=== PATIENT | female | born 1950 | race Caucasian/White ===

== ENCOUNTER → 2016-10-15 | Outpatient (CLI) | payer OTHER ==
[~2016-10-15] MED LIST: ARTHRITIS PO; LEVO25TA5 PO; [UNRECOGNIZED DRUG - OTHER] PO
--- NOTE | 2016-10-15 12:53 | DIAGNOSTIC IMAGING REPORT ---
LEFT TIBIA/FIBULA 2 VIEWS ROUTINE, LEFT ANKLE MIN 3 VIEWS ROUTINE CLINICAL HISTORY: ANKLE JOINT PAIN, LEFT M25.572 COMPARISON STUDY: None. FINDINGS: Soft tissue swelling within the left ankle. Moderate osteoarthritis at the ankle joint. There is also dorsal soft tissue swelling within the mid foot. Plantar and posterior calcaneal spurs. No fracture or dislocation. There is also mild osteoarthritis within the left knee. IMPRESSION: Left ankle soft tissue swelling. No fracture or dislocation within the left tibia, fibula, or left ankle. Electronically signed by: Jose Grady M.D. 10/15/2016 12:52 PM Dictated Date/Time: 10/15/2016 12:49 PM
== END | disposition home or self-care (01) ==
LOC: C.RAD 12:17
PROVIDERS: ATTEND Family Medicine
DX: M25.572 Pain in left ankle and joints of left foot (principal)

== ENCOUNTER 2021-08-05 08:35 | Inpatient (IN) ==
[2021-08-05] MEDS ORDERED: CEFEPIME 2,000 MG/20 ML VIAL IV STA (08:53)
--- NOTE | 2021-08-05 08:59 | Emergency Department Note ---
History of Present Illness General Chief complaint: Illness Time Seen by Provider: 08/05/21 08:45 History of Present Illness Maximum Pain Intensity: 8 70-year-old female presents to the ED with a chief complaint of increased weakness and increased shortness of breath especially with exertion. The patient was seen here yesterday with a complaint of 5 days of a cough, fever and congestion as well as fatigue. She also had a little vomiting and diarrhea. She also had loss of taste and smell. She was diagnosed with a Covid pneumonia. She was given a albuterol MDI as well as some IV fluids and Zofran. She was also given monoclonal antibodies IV. She was discharged with a pulse oximeter. She states that her pulse oximeter was 87% this morning. For this reason she can return to the ED. Home Medications Medication Instructions Recorded Confirmed Type cholecalciferol (vitamin D3) 50 50 mcg PO DAILY 01/18/20 07/30/21 History mcg (2,000 unit) capsule (Vitamin D3) levothyroxine 25 mcg tablet 12.5 mcg PO DAILY #45 tab 08/28/20 08/05/21 Rx loratadine 10 mg tablet (Claritin) 10 mg PO DAILY #90 tab 04/19/21 08/05/21 Rx losartan 50 mg tablet 75 mg PO DAILY #90 tab 06/06/21 08/05/21 Rx ascorbic acid (vitamin C) 1,000 mg 1 g PO DAILY tab 07/30/21 07/30/21 History tablet furosemide 20 mg tablet (Lasix) 20 mg PO DAILY PRN #30 tab 07/30/21 08/05/21 Rx garlic [Garlique] PO DAILY 07/30/21 07/30/21 History zinc 50 mg tablet 50 mg PO DAILY 07/30/21 07/30/21 History albuterol sulfate 90 mcg/actuation 2 inh INHALATION Q6H #18 g 08/04/21 Rx aerosol inhaler benzonatate 100 mg capsule 100 mg PO BID 08/05/21 08/05/21 History ivermectin 3 mg tablet 3 mg PO BID 08/05/21 08/05/21 History Allergies Allergy/AdvReac Type Severity Reaction Status Date / Time No Known Drug Allergies Allergy Verified 08/05/21 09:32 Past Med/Surg History Medical History Depression Eczema Endometriosis Charla's thyroiditis Hematuria Hx of ectopic Hyperlipidemia Hypertension Hypothyroidism Irritable bowel syndrome Neural hearing loss, bilateral Venous insufficiency (chronic) (peripheral) Vitamin D deficiency Surgical History H/O unilateral salpingectomy secondary to ectopic History of cholecystectomy (2012) History of hysterectomy (1992) partial S/P left knee arthroscopy S/P right knee arthroscopy Family History Aunt Breast cancer Mother , Sep 2019 Non-Hodgkin lymphoma Hypertension High cholesterol Congestive heart failure Father High cholesterol Leukemia Grandmother (Maternal) Myocardial infarction, Onset Age: 67 Denies family history of Ovarian cancer Prostate cancer Colorectal cancer Social History Smoking Status: Never smoker Second Hand Exposure: No; Hx Alcohol Use: No Hx Substance Use: No Preferred Language: Pakistani Communication Ability: Effective Visual Impairment: No Limitations Hearing Ability: Hard of Hearing Plan Coordinator Required: No Beliefs That Will Affect Care: None marital status: Current Living Situation: Spouse current occupational status: other current occupation: homemaker Feels Safe at Home: Yes Childhood Exposure to Second-Hand Smoke: No caffeine: Yes (1 cup a day coffee) during the past year weight has: decreased > 10 lbs Dental Care, Regularly: No Physical Activity Frequency: 1-2 Times per Week Seatbelt Use: always Sunscreen Use: No Review of Systems A total of 10 systems reviewed and were otherwise negative Physical Exam Vital Signs Vital Signs - 24 hr 08/05/21 08:40 08/05/21 09:33 08/05/21 09:39 Temperature 38.5 C H Temperature Source Temporal Artery Scan Pulse Rate 96 H Respiratory Rate 20 Respiratory Effort / Characteristics Non-Labored Respiratory Depth Normal Respiratory Pattern Regular Blood Pressure 148/68 H Blood Pressure Mean 94 Blood Pressure Position Sitting Pulse Oximetry 92 94 82 L Oxygen Delivery Method Room Air Nasal Cannula Room Air Oxygen Flow Rate 3 Sepsis Recent Fever Within 48 Hours Yes Sepsis New/Unexplained Change in Mental Status No Sepsis Action Taken by Nursing No Action Required Oxygen Flow Rate - Titration 3 Pulse Oximetry Post Tiitration 95 CONSTITUTIONAL/VITAL SIGNS: Reviewed / noted above. GENERAL: Non-toxic in appearance. INTEGUMENTARY: Warm, dry, and [place]. HEAD: Normocephalic. EYES: without scleral icterus or trauma. ENT/OROPHARYNX: clear and moist. LYMPHADENOPATHY/NECK: Is supple without lymphadenopathy or meningismus. RESPIRATORY: Bilateral rhonchi right greater than left. No wheezes. Mild to moderate increased work of breathing after coming out of the bathroom CARDIOVASCULAR: Regular rate and rhythm. GI/ABDOMEN: Soft and nontender. No organomegaly or pulsatile mass. EXTREMITIES: Warm and well perfused. BACK: No CVA tenderness. NEUROLOGICAL: Intact without focal deficits. PSYCHIATRIC: normal affect. MUSCULOSKELETAL: Normally developed with good muscle tone. TRIAGE NURSING DOCUMENTATION REVIEWED. Course Administered Medications Discontinued Medications Acetaminophen (Acetaminophen 500 Mg Tab) 500 mg PO NOW STA Stop: 08/05/21 09:11 Last Admin: 08/05/21 09:20 Dose: 500 mg Documented by: [id number] Dexamethasone Sodium Phosphate (DexamethasonePf 10 Mg/Ml Vial) 6 mg IV NOW ONE Stop: 08/05/21 09:08 Last Admin: 08/05/21 09:20 Dose: 6 mg Documented by: [id number] Cefepime HCl (Maxipime) 2,000 mg in 20 mls @ 5 mls/min IV NOW STA; Protocol Stop: 08/05/21 08:56 Last Admin: 08/05/21 09:20 Dose: 5 mls/min Documented by: [id number] Medical Decision Making Differential Diagnosis The differential was considered includes acute myocardial infarction, acute cor onary syndrome, myocarditis, pericarditis, pericardial effusions /tamponad, esophageal perforation, pulmonary embolism, pneumonia, pneumothorax, cardiomyopathy, congestive heart, anemia , COPD/asthma exacerbation. Medical Records Attestation: I reviewed the patient's medical records. Home Medications Current Medication List: was personally reviewed by me Laboratory Data Attestation: I reviewed the patient's lab results. Result diagrams: 08/05/21 09:05 08/05/21 09:05 Lab Results 08/05/21 08/05/21 08/05/21 Range/Units 09:05 09:05 09:05 WBC 8.03 (4.8-10.8) K/uL RBC 4.05 L (4.2-5.4) M/uL Hgb 12.7 (12.0-16.0) g/dL Hct 38.6 (37-47) % MCV 95.3 (80-100) fL MCH 31.4 (25-34) pg MCHC 32.9 (32-36) g/dL RDW Std Deviation 50.5 H (36.4-46.3) fL RDW Coeff of Manny 14.4 (11.5-14.5) % Plt Count 134 (130-400) K/uL MPV 10.1 (7.4-10.4) fL Immature Gran % (Auto) 0.5 % Neut % (Auto) 90.0 % Lymph % (Auto) 7.3 % Tompkins % (Auto) 2.1 % Eos % (Auto) 0.0 % Baso % (Auto) 0.1 % Neut # (Auto) 7.22 H (1.4-6.5) K/uL Lymph # (Auto) 0.59 L (1.2-3.4) K/uL Tompkins # (Auto) 0.17 (0.11-0.59) K/uL Eos # (Auto) 0.00 (0-0.5) K/uL Baso # (Auto) 0.01 (0-0.2) K/uL Immature Gran # (Auto) 0.04 H (0.00-0.02) K/uL PT Cancelled INR Cancelled APTT Cancelled PTT Ratio Cancelled Sodium 136 (136-145) mmol/L Potassium 3.4 L (3.5-5.1) mmol/L Chloride 107 (98-107) mmol/L Carbon Dioxide 20 L (21-32) mmol/L Anion Gap 9.0 (3-11) BUN 14 (7-18) mg/dl Creatinine 1.01 (0.6-1.2) mg/dl Est Cr Clr Drug Dosing Not Reportable Est GFR ( Amer) 64.4 ml/min Est GFR (Non-Af Amer) 55.6 ml/min BUN/Creatinine Ratio 13.7 (10-20) Glucose 125 H (70-99) mg/dl Lactate (0.4-2.0) mmol/L Calcium 8.6 (8.5-10.1) mg/dl Magnesium 2.0 (1.8-2.4) mg/dl Total Bilirubin 0.4 (0.2-1) mg/dl AST 109 H (15-37) U/L ALT 131 H (12-78) Alkaline Phosphatase 262 H (45-117) U/L Troponin I 0.031 (0-0.045) ng/ml Total Protein 7.6 (6.4-8.2) gm/dl Albumin 3.1 L (3.4-5.0) gm/dl Globulin 4.5 H (2.5-4.0) gm/dl Albumin/Globulin Ratio 0.7 L (0.9-2) 08/05/21 Range/Units 09:05 WBC (4.8-10.8) K/uL RBC (4.2-5.4) M/uL Hgb (12.0-16.0) g/dL Hct (37-47) % MCV (80-100) fL MCH (25-34) pg MCHC (32-36) g/dL RDW Std Deviation (36.4-46.3) fL RDW Coeff of Manny (11.5-14.5) % Plt Count (130-400) K/uL MPV (7.4-10.4) fL Immature Gran % (Auto) % Neut % (Auto) % Lymph % (Auto) % Tompkins % (Auto) % Eos % (Auto) % Baso % (Auto) % Neut # (Auto) (1.4-6.5) K/uL Lymph # (Auto) (1.2-3.4) K/uL Tompkins # (Auto) (0.11-0.59) K/uL Eos # (Auto) (0-0.5) K/uL Baso # (Auto) (0-0.2) K/uL Immature Gran # (Auto) (0.00-0.02) K/uL PT INR APTT PTT Ratio Sodium (136-145) mmol/L Potassium (3.5-5.1) mmol/L Chloride (98-107) mmol/L Carbon Dioxide (21-32) mmol/L Anion Gap (3-11) BUN (7-18) mg/dl Creatinine (0.6-1.2) mg/dl Est Cr Clr Drug Dosing Est GFR ( Amer) ml/min Est GFR (Non-Af Amer) ml/min BUN/Creatinine Ratio (10-20) Glucose (70-99) mg/dl Lactate 1.4 (0.4-2.0) mmol/L Calcium (8.5-10.1) mg/dl Magnesium (1.8-2.4) mg/dl Total Bilirubin (0.2-1) mg/dl AST (15-37) U/L ALT (12-78) Alkaline Phosphatase (45-117) U/L Troponin I (0-0.045) ng/ml Total Protein (6.4-8.2) gm/dl Albumin (3.4-5.0) gm/dl Globulin (2.5-4.0) gm/dl Albumin/Globulin Ratio (0.9-2) Imaging Data My Impression: Chest x-ray: Per my interpretation there is bilateral infiltrates right greater than left. This appears worse than yesterday's x-ray. No pneumothorax. ECG Data Attestation: I personally reviewed and interpreted this ECG as follows: Additional Comments: Twelve-lead EKG: Per my interpretation shows a normal sinus rhythm at a rate of 94. No ST elevation. No PVCs. Normal QTC MDM Narrative Patient returns to the ED after discharge last night with increased shortness of breath and fatigue and a low pulse oximeter. Her initial pulse ox in triage here was 93% but with after walking out of the bathroom in the ED room, she had saturations of 78% on room air. She does not use home oxygen. She does have some rhonchi right greater than left. She is also febrile with a temperature of 38.5. Chest x-ray shows bilateral infiltrates right greater than left. It appears worse than yesterday's x-ray. Her CBC and chemistry panel was unremarkable other than some transaminitis which was present yesterday as well. Troponin was negative. The patient was given IV Decadron. She was also given empiric cefepime and p.o. Tylenol. She will be seen by the hospitalist for further inpatient evaluation and care. Impression & Plan Pneumonia due to COVID-19 virus, Hypoxia Discharge Plan Visit Data Chief Complaint: Illness ED Provider: Jeffry Mora Discharge Problem: Pneumonia due to COVID-19 virus, Hypoxia Patient Disposition: Admitted As Inpatient Forms Stand Alone Forms: My [facility] [place] Prescriptions Prescriptions: No Action levothyroxine 25 mcg tablet 12.5 mcg PO DAILY Qty: 45 RF: 1 Hold Instructions: hair loss loratadine [Claritin] 10 mg tablet 10 mg PO DAILY Qty: 90 RF: 1 losartan 50 mg tablet 75 mg PO DAILY Qty: 90 RF: 1 ascorbic acid (vitamin C) 1,000 mg tablet 1 g PO DAILY RF: 0 garlic [Garlique] PO DAILY RF: 0 zinc 50 mg tablet 50 mg PO DAILY RF: 0 furosemide [Lasix] 20 mg tablet 20 mg PO DAILY PRN (Reason: edema) Qty: 30 RF: 1 cholecalciferol (vitamin D3) [Vitamin D3] 50 mcg (2,000 unit) Capsule 50 mcg PO DAILY RF: 0 albuterol sulfate 90 mcg/actuation HFA aerosol inhaler 2 inh inhalation Q6H Qty: 18 RF: 2 ivermectin 3 mg tablet 3 mg PO BID RF: 0 benzonatate 100 mg capsule 100 mg PO BID RF: 0 Referrals Referrals: Bell Rosales DO [Primary Care Provider] -
[2021-08-05] MEDS ORDERED: dexAMETHasone**PF** 10 MG/ML VIAL IV ONE (09:07)
[2021-08-05] MEDS ORDERED: ACETAMINOPHEN 500 MG TAB PO STA (09:10)
[2021-08-05] MEDS ORDERED: REMDESIVIR 200 MG in SODIUM CHLORIDE 0.9% 210 ML IV STA (09:23)
[2021-08-05 09:26] LABS: Basophils # (auto) 0.01 K/uL (0-0.2); Basophils % (auto) 0.1 %; Hematocrit (blood only) 38.6 % (37-47); Hemoglobin 12.7 g/dL (12.0-16.0); Immature Granulocytes # (auto) 0.04 K/uL (0.00-0.02); Immature Granulocytes % (auto) 0.5 %; Lymphocytes # (auto) 0.59 K/uL (1.2-3.4); Lymphocytes % (auto) 7.3 %; Mean Corpuscular Hemoglobin 31.4 pg (25-34); Mean Corpuscular Hgb Conc 32.9 g/dL (32-36); Mean Corpuscular Volume 95.3 fL (80-100); Mean Platelet Volume 10.1 fL (7.4-10.4); Monocytes # (auto) 0.17 K/uL (0.11-0.59); Monocytes % (auto) 2.1 %; Neutrophils # (auto) 7.22 K/uL (1.4-6.5); Platelet Count 134 K/uL (130-400); RDW Coefficient of Variation 14.4 % (11.5-14.5); RDW Standard Deviation 50.5 fL (36.4-46.3); Red Blood Count 4.05 M/uL (4.2-5.4); White Blood Count 8.03 K/uL (4.8-10.8)
[2021-08-05 09:49] LABS: Alanine Aminotransferase 131 (12-78); Albumin Level 3.1 gm/dl (3.4-5.0); Aspartate Aminotransferase 109 U/L (15-37); BUN Creatinine Ratio 13.7 (10-20); Blood Urea Nitrogen 14 mg/dl (7-18); Calcium 8.6 mg/dl (8.5-10.1); Carbon Dioxide 20 mmol/L (21-32); Chloride 107 mmol/L (98-107); Est GFR (African American) 64.4 ml/min; Est GFR (Non-African American) 55.6 ml/min; Glucose 125 mg/dl (70-99); Potassium 3.4 mmol/L (3.5-5.1); Sodium 136 mmol/L (136-145)
[2021-08-05 09:54] LABS: Albumin Globulin Ratio 0.7 (0.9-2); Alkaline Phosphatase 262 U/L (45-117); Bilirubin,Total 0.4 mg/dl (0.2-1); Globulin 4.5 gm/dl (2.5-4.0); Total Protein 7.6 gm/dl (6.4-8.2); Troponin I 0.031 ng/ml (0-0.045)
--- NOTE | 2021-08-05 10:01 | XRay Report ---
XR chest 1V portable HISTORY: 70 years-old Female SEPSIS acute sepsis COMPARISON: Chest radiograph August 04, 2021 TECHNIQUE: Portable AP view of the chest FINDINGS: Cardiac silhouette is enlarged. Mild left hemidiaphragmatic elevation. No pneumothorax or large pleur al effusion. Interstitial coarsening with patchy bilateral airspace opacities, mildly progressed from prior. Pulmonary vascular congestion. Degenerative changes of the shoulders and spine. IMPRESSION: Cardiomegaly with probable pulmonary edema and progressively worsened airspace opacities suggestive of superimposed pneumonia. ACT 112: Negative or not required by law. The above report was generated using voice recognition software. It may contain grammatical, syntax o r spelling errors. Electronically signed by: Audie Gauthier M.D. 08/05/2021 10:00 AM
[2021-08-05] MEDS: FUROSEMIDE 20 MG TAB PO SCH (10:02)
[2021-08-05] MEDS: LOSARTAN POTASSIUM 50 MG TAB PO SCH (10:02)
--- NOTE | 2021-08-05 10:47 | History & Physical Report ---
Date of Service August 05, 2021 Assessment & Plan (1) Pneumonia due to COVID-19 virus: Plan: Patient acute hypoxic respiratory failure secondary to Covid 19 infection with pneumonia First symptoms: ~07/30/2021 First tested: in our system 08/04/2021 Vaccinated: No Admission date: 08/05/2021 Admission O2 requirement: 3 L Admission CRP: Pending Dexamethasone course started: 08/05/2020 Remdesivir started: 08/05/2020 Tocilizumab given/baricitinib being considered Antibiotics: Azithromycin, was given cefepime in the ER did a pro-Adan of 1.16 on admission (2) Hypertension: Plan: Continue losartan will be on daily furosemide in addition (3) Hypothyroidism: Plan: History of Charla's thyroiditis continues on levothyroxine very low-dose History of Present Illness Primary Care Provider: Bell Rosales DO 70-year-old female who received monoclonal antibodies on 08/04/2021. Patient presents after going home and coming back with hypoxemia. Patient has a 5-day prehospital history of fever congestion fatigue and diarrhea. Patient has Covid positive testing. Patient became profoundly hypoxic when ambulating in the ER. Patient is extremely hard of hearing but recommended for admission. She denies any other medical problems with exception of a prolapsed uterus and difficulty with urinary incontinence but no complaints of dysuria or cloudy urine. Patient remains intermittently febrile and hypoxemic patient is unvaccinated. Patient was taking ivermectin that she got off the Internet from [place] Allergies Allergy/AdvReac Type Severity Reaction Status Date / Time No Known Drug Allergies Allergy Verified 08/05/21 09:32 Home Medications Medication Instructions Recorded Confirmed Type cholecalciferol (vitamin D3) 50 50 mcg PO DAILY 01/18/20 07/30/21 History mcg (2,000 unit) capsule (Vitamin D3) levothyroxine 25 mcg tablet 12.5 mcg PO DAILY #45 tab 08/28/20 08/05/21 Rx loratadine 10 mg tablet (Claritin) 10 mg PO DAILY #90 tab 04/19/21 08/05/21 Rx losartan 50 mg tablet 75 mg PO DAILY #90 tab 06/06/21 08/05/21 Rx ascorbic acid (vitamin C) 1,000 mg 1 g PO DAILY tab 07/30/21 07/30/21 History tablet furosemide 20 mg tablet (Lasix) 20 mg PO DAILY PRN #30 tab 07/30/21 08/05/21 Rx garlic [Garlique] PO DAILY 07/30/21 07/30/21 History zinc 50 mg tablet 50 mg PO DAILY 07/30/21 07/30/21 History albuterol sulfate 90 mcg/actuation 2 inh INHALATION Q6H #18 g 08/04/21 Rx aerosol inhaler benzonatate 100 mg capsule 100 mg PO BID 08/05/21 08/05/21 History ivermectin 3 mg tablet 3 mg PO BID 08/05/21 08/05/21 History Past Med/Surg History Medical History Depression Eczema Endometriosis Charla's thyroiditis Hematuria Hx of ectopic Hyperlipidemia Hypertension Hypothyroidism Irritable bowel syndrome Neural hearing loss, bilateral Venous insufficiency (chronic) (peripheral) Vitamin D deficiency Surgical History H/O unilateral salpingectomy secondary to ectopic History of cholecystectomy (2012) History of hysterectomy (1992) partial S/P left knee arthroscopy S/P right knee arthroscopy Family History Aunt Breast cancer Mother , Sep 2019 Non-Hodgkin lymphoma Hypertension High cholesterol Congestive heart failure Father High cholesterol Leukemia Grandmother (Maternal) Myocardial infarction, Onset Age: 67 Denies family history of Ovarian cancer Prostate cancer Colorectal cancer Social History Smoking Status: Never smoker Second Hand Exposure: No; Hx Alcohol Use: No Hx Substance Use: No Preferred Language: Japanese Communication Ability: Effective Visual Impairment: No Limitations Hearing Ability: Hard of Hearing 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 Beliefs That Will Affect Care: None marital status: Current Living Situation: Spouse current occupational status: other current occupation: homemaker Feels Safe at Home: Yes Safety Concerns: Feels Safe At This Time Childhood Exposure to Second-Hand Smoke: No caffeine: Yes (1 cup a day coffee) during the past year weight has: decreased > 10 lbs Dental Care, Regularly: No Physical Activity Frequency: 1-2 Times per Week Seatbelt Use: always Sunscreen Use: No Assistive Devices: Glasses and Hearing Aid - Bilateral Review of Systems Review of Systems: Moderate distress and fatigue no headache, no visual changes no speech or swallowing issues no chest pain, pressure or palpitations shortness of breath, nonproductive cough or wheezes some chest wall muscle strain from coughing no abdominal pain, nausea or vomiting, no diarrhea No dysuria but she does have incontinence no focal joint pain or swelling no back pain, CVA tenderness or radicular pain no bruising, bleeding or rashes no focal signs of weakness or numbness or altered sensation no complaints of anxiety or depression.. Physical Exam Physical Exam: The patient appeared mild to moderate respiratory distress Vital signs as documented. Head exam is normocephalic atraumatic Neck is without JVD, thyromegaly, or carotid bruits. Lungs are coarse bilaterally in all lung anthony tachypnea Cardiac exam, Rhythm is regular.. No murmurs, rubs or gallops. Abdominal exam reveals normal bowel sounds, soft non tender, no masses Extremities are nonedematous and both pedal pulses are present Neurologic exam is alert and oriented, no focal loss of strength or sensation Skin is without bruises or rashes Psychologically is without concerns for anxiety or depression.. Results & Data Results & Data ([facility]) Vital Signs (Past 12 Hours) Vital Signs Temp Pulse Resp BP Pulse Ox 08/05/21 09:39 82 L 08/05/21 09:33 94 08/05/21 08:40 101.3 F H 96 H 20 148/68 H 92 Code Status & VTE Plan VTE Prophylaxis Plan VTE Prophylaxis will be ordered: Yes PG Care Time/CCT Total # of Minutes Spent Total Time Spent with Patient: Total time spent is greater than 50% in coordination of care (as documented) at patient's floor/unit and/or counseling patient: Coding Level of Care Code 84207 Initial Inpt Care Lvl 3 Diagnoses Pneumonia due to COVID-19 virus U07.1; J12.82 Hypertension I10 Hypothyroidism E03.9
[2021-08-05] MEDS ORDERED: ALUMINUM/MAGNESIUM SUSP 30 ML UDC PO PRN (11:18)
[2021-08-05] MEDS ORDERED: PATIENT'S HEIGHT AND/OR WEIGHT NEEDED SCH (11:30)
[2021-08-05] MEDS: AZITHROMYCIN 500 MG in DEXTROSE 5% 250 ML IV SCH (12:21)
[2021-08-05] MEDS: FAMOTIDINE 20 MG TAB PO SCH ×2 (12:57→20:48)
[2021-08-05] MEDS: ZINC SULFATE 220 MG CAPSULE PO SCH (13:34)
--- NOTE | 2021-08-05 14:14 | Electrocardiogram Report ---
Test Reason : Blood Pressure : / mmHG Vent. Rate : 094 BPM Atrial Rate : 094 BPM P-R Int : 140 ms QRS Dur : 076 ms QT Int : 336 ms P-R-T Axes : 045 041 048 degrees QTc Int : 420 ms Normal sinus rhythm Normal ECG When compared with ECG of 04-AUG-2021 16:52, (unconfirmed) No significant change was found Confirmed by Kanu Mayorga ([id number]) on 08/05/2021 2:14:08 PM Referred By: ED Confirmed By:Kanu Mayorga
[2021-08-05] MEDS ORDERED: COUGH DROP (SUGAR FREE) LOZ 24 LOZ/1 BOX BUCCAL STA (16:36)
[2021-08-05] MEDS: ONDANSETRON INJ 2 MG/ML 2 ML VIAL IV PRN (20:48)
[2021-08-05] MEDS: guaiFENesin/CODEINE 100MG/10MG 5ML UDC PO PRN (21:50)
[2021-08-05] MEDS: MELATONIN 3 MG TAB PO PRN (22:47)
[2021-08-06] MEDS: LEVOTHYROXINE SODIUM 25 MCG TABLET PO SCH ×2 (04:33→04:36)
[2021-08-06] MEDS: guaiFENesin/CODEINE 100MG/10MG 5ML UDC PO PRN (04:34)
[2021-08-06] MEDS ORDERED: MICONAZOLE NITRATE POWDER 43 GM EXT PRN (05:07)
[2021-08-06] MEDS: ONDANSETRON INJ 2 MG/ML 2 ML VIAL IV PRN (05:33)
[2021-08-06] MEDS ORDERED: POTASSIUM CHLORIDE CRTAB 20 MEQ TABCR PO STA (08:18)
[2021-08-06] MEDS: LOSARTAN POTASSIUM 50 MG TAB PO SCH (09:00)
[2021-08-06] MEDS: FAMOTIDINE 20 MG TAB PO SCH ×2 (09:00→20:57)
[2021-08-06] MEDS: ZINC SULFATE 220 MG CAPSULE PO SCH (09:00)
[2021-08-06] MEDS: dexAMETHasone 6 MG in SYRINGE 0 ML IV SCH (09:01)
[2021-08-06] MEDS: CHOLECALCIFEROL 1,000 UNITS 25 MCG TAB PO SCH (09:01)
[2021-08-06] MEDS: FUROSEMIDE 20 MG TAB PO SCH (09:01)
[2021-08-06] MEDS: LORATADINE 10 MG TAB PO SCH (09:01)
[2021-08-06] MEDS: ASCORBIC ACID 500 MG TAB PO SCH (09:01)
[2021-08-06] MEDS: REMDESIVIR 100 MG in SODIUM CHLORIDE 0.9% 230 ML IV SCH (10:45)
[2021-08-06] MEDS: AZITHROMYCIN 500 MG in DEXTROSE 5% 250 ML IV SCH (12:34)
[2021-08-06] MEDS: SODIUM CHLORIDE 0.9% 10ML FLUSH IV SCH (12:35)
--- NOTE | 2021-08-06 18:39 | Hospitalist Progress Note ---
Date of Service August 06, 2021 Assessment & Plan (1) Pneumonia due to COVID-19 virus: Plan: Patient acute hypoxic respiratory failure secondary to Covid 19 infection with pneumonia First symptoms: ~07/30/2021 First tested: in our system 08/04/2021 Vaccinated: No Admission date: 08/05/2021 Admission O2 requirement: 2 L Admission CRP: 12 on 08/05/21 Dexamethasone course started: 08/05/2020 Remdesivir started: 08/05/2020 Tocilizumab given/baricitinib being considered Antibiotics: Azithromycin, was given cefepime in the ER did a pro-Adan of 1.16 on admission did spend 25 minutes at the bedside discussing the vaccine etc (2) Hypertension: Plan: Continue losartan will be on daily furosemide in addition (3) Hypothyroidism: Plan: History of Charla's thyroiditis continues on levothyroxine very low-dose Admission and Anticipated Discharge Date Admission Date: August 05, 2021 Subjective Patient is in good spirits today. She requires very little oxygen at this time doing well has many questions about the vaccine etc. Review of Systems Review of Systems: Moderate distress and fatigue no headache, no visual changes no speech or swallowing issues no chest pain, pressure or palpitations shortness of breath, nonproductive cough or wheezes some chest wall muscle strain from coughing no abdominal pain, nausea or vomiting, no diarrhea No dysuria but she does have incontinence no focal joint pain or swelling no back pain, CVA tenderness or radicular pain no bruising, bleeding or rashes no focal signs of weakness or numbness or altered sensation no complaints of anxiety or depression.. Physical Exam Physical Exam: The patient appeared mild to moderate respiratory distress Vital signs as documented. Head exam is normocephalic atraumatic Neck is without JVD, thyromegaly, or carotid bruits. Lungs are coarse bilaterally in all lung anthony tachypnea Cardiac exam, Rhythm is regular.. No murmurs, rubs or gallops. Abdominal exam reveals normal bowel sounds, soft non tender, no masses Extremities are nonedematous and both pedal pulses are present Neurologic exam is alert and oriented, no focal loss of strength or sensation Skin is without bruises or rashes Psychologically is without concerns for anxiety or depression.. Results & Data Results & Data ([facility]) Vital Signs (Past 12 Hours) Vital Signs Temp Pulse Resp BP Pulse Ox Pulse Ox 08/06/21 14:40 98.1 F 20 153/76 H 96 08/06/21 09:12 93 08/06/21 08:26 98.6 F 81 19 149/77 H 91 PG Care Time/CCT Total # of Minutes Spent Total Time Spent with Patient: Total time spent is greater than 50% in coordination of care (as documented) at patient's floor/unit and/or counseling patient: Coding Level of Care Code 23706 Subseq Hosp Care Lvl 2 Diagnoses Pneumonia due to COVID-19 virus U07.1; J12.82 Hypertension I10 Hypothyroidism E03.9
[2021-08-06] MEDS: MELATONIN 3 MG TAB PO PRN (22:47)
[2021-08-07] MEDS ORDERED: ALBUTEROL HFA 8 GM INHALER INH ONE (03:06)
[2021-08-07] MEDS: guaiFENesin/CODEINE 100MG/10MG 5ML UDC PO PRN ×2 (03:19→22:22)
[2021-08-07] MEDS: LEVOTHYROXINE SODIUM 25 MCG TABLET PO SCH (04:45)
--- NOTE | 2021-08-07 08:54 | Hospitalist Progress Note ---
Date of Service August 07, 2021 Assessment & Plan (1) Pneumonia due to COVID-19 virus: Plan: Patient acute hypoxic respiratory failure secondary to Covid 19 infection with pneumonia First symptoms: ~07/30/2021 First tested: in our system 08/04/2021 Vaccinated: No Admission date: 08/05/2021 Admission O2 requirement: 2 L Admission CRP: 12 on 08/05/21 Dexamethasone course started: 08/05/2020 Remdesivir started: 08/05/2020 Tocilizumab given/baricitinib being considered Antibiotics: Azithromycin, was given cefepime in the ER did a pro-Adan of 1.16 on admission gave reassurance at the bedside with supportive encouragement (2) Hypertension: Plan: Continue losartan will be on daily furosemide in addition (3) Hypothyroidism: Plan: 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 She requires variable oxygen at this time up to 6 L and now back to 4 liters Review of Systems Review of Systems: Moderate distress and fatigue no headache, no visual changes no speech or swallowing issues no chest pain, pressure or palpitations shortness of breath, nonproductive cough or wheezes chest is less no abdominal pain, nausea or vomiting, no diarrhea No dysuria but she does have incontinence no focal joint pain or swelling no back pain, CVA tenderness or radicular pain no bruising, bleeding or rashes no focal signs of weakness or numbness or altered sensation no complaints of anxiety or depression.. Physical Exam Physical Exam: The patient appeared mild to moderate respiratory distress Vital signs as documented. Head exam is normocephalic atraumatic Neck is without JVD, thyromegaly, or carotid bruits. Lungs are coarse bilaterally in all lung anthony tachypnea Cardiac exam, Rhythm is regular.. No murmurs, rubs or gallops. Abdominal exam reveals normal bowel sounds, soft non tender, no masses Extremities are nonedematous and both pedal pulses are present Neurologic exam is alert and oriented, no focal loss of strength or sensation Skin is without bruises or rashes Psychologically is without concerns for anxiety or depression.. Results & Data Results & Data ([facility]) Vital Signs (Past 12 Hours) Vital Signs Temp Pulse Resp BP Pulse Ox 08/07/21 07:56 97.5 F L 90 22 172/87 H 95 08/07/21 03:48 77 24 93 08/07/21 03:33 91 08/07/21 02:25 87 L 08/06/21 22:47 97.9 F 71 16 142/83 H 94 PG Care Time/CCT Total # of Minutes Spent Total Time Spent with Patient: Total time spent is greater than 50% in coordination of care (as documented) at patient's floor/unit and/or counseling patient: Coding Level of Care Code 21584 Subseq Hosp Care Lvl 2 Diagnoses Pneumonia due to COVID-19 virus U07.1; J12.82 Hypertension I10 Hypothyroidism E03.9
[2021-08-07] MEDS: dexAMETHasone 6 MG in SYRINGE 0 ML IV SCH (10:03)
[2021-08-07] MEDS: FAMOTIDINE 20 MG TAB PO SCH ×2 (10:03→22:21)
[2021-08-07] MEDS: ZINC SULFATE 220 MG CAPSULE PO SCH (10:04)
[2021-08-07] MEDS: ASCORBIC ACID 500 MG TAB PO SCH (10:04)
[2021-08-07] MEDS: LORATADINE 10 MG TAB PO SCH (10:05)
[2021-08-07] MEDS: CHOLECALCIFEROL 1,000 UNITS 25 MCG TAB PO SCH (10:05)
[2021-08-07] MEDS: FLUTICASONE PROPIONATE NA SPR 16 GM BTL SCH ×2 (10:06→21:16)
[2021-08-07] MEDS: LOSARTAN POTASSIUM 50 MG TAB PO SCH (10:10)
[2021-08-07] MEDS: FUROSEMIDE 20 MG TAB PO SCH (10:10)
[2021-08-07] MEDS: REMDESIVIR 100 MG in SODIUM CHLORIDE 0.9% 230 ML IV SCH (11:45)
[2021-08-07] MEDS: SODIUM CHLORIDE 0.9% 10ML FLUSH IV SCH (12:52)
[2021-08-07] MEDS: AZITHROMYCIN 500 MG in DEXTROSE 5% 250 ML IV SCH (12:56)
[2021-08-07] MEDS: MELATONIN 3 MG TAB PO PRN (22:21)
[2021-08-07] MEDS: ONDANSETRON INJ 2 MG/ML 2 ML VIAL IV PRN (22:22)
[2021-08-07] MEDS: ACETAMINOPHEN 325 MG TAB PO PRN (22:32)
[2021-08-08] MEDS: LEVOTHYROXINE SODIUM 25 MCG TABLET PO SCH (05:46)
[2021-08-08] MEDS: LORATADINE 10 MG TAB PO SCH (08:30)
[2021-08-08] MEDS: ASCORBIC ACID 500 MG TAB PO SCH (08:30)
[2021-08-08] MEDS: ZINC SULFATE 220 MG CAPSULE PO SCH (08:30)
[2021-08-08] MEDS: FUROSEMIDE 20 MG TAB PO SCH (08:31)
[2021-08-08] MEDS: LOSARTAN POTASSIUM 50 MG TAB PO SCH (08:31)
[2021-08-08] MEDS: CHOLECALCIFEROL 1,000 UNITS 25 MCG TAB PO SCH (08:31)
[2021-08-08] MEDS: FLUTICASONE PROPIONATE NA SPR 16 GM BTL SCH (08:32)
[2021-08-08] MEDS: FAMOTIDINE 20 MG TAB PO SCH ×2 (08:40→20:52)
[2021-08-08] MEDS: ONDANSETRON INJ 2 MG/ML 2 ML VIAL IV PRN (08:40)
[2021-08-08] MEDS: ACETAMINOPHEN 325 MG TAB PO PRN ×2 (08:40→20:51)
[2021-08-08 09:52] LABS: Basophils # (auto) 0.01 K/uL (0-0.2); Basophils % (auto) 0.2 %; Hematocrit (blood only) 38.4 % (37-47); Hemoglobin 12.6 g/dL (12.0-16.0); Immature Granulocytes # (auto) 0.01 K/uL (0.00-0.02); Immature Granulocytes % (auto) 0.2 %; Lymphocytes % (auto) 14.6 %; Mean Corpuscular Hgb Conc 32.8 g/dL (32-36); Mean Corpuscular Volume 94.6 fL (80-100); Mean Platelet Volume 10.4 fL (7.4-10.4); Monocytes # (auto) 0.34 K/uL (0.11-0.59); Monocytes % (auto) 5.5 %; Neutrophils # (auto) 4.92 K/uL (1.4-6.5); Neutrophils % (auto) 79.5 %; Platelet Count 207 K/uL (130-400); RDW Coefficient of Variation 14.1 % (11.5-14.5); RDW Standard Deviation 48.8 fL (36.4-46.3); Red Blood Count 4.06 M/uL (4.2-5.4); White Blood Count 6.18 K/uL (4.8-10.8)
[2021-08-08 10:48] LABS: Albumin Level 2.6 gm/dl (3.4-5.0); BUN Creatinine Ratio 32.3 (10-20); Creatinine Clr Calc Pharmacy 76.4 ml/min; Est GFR (African American) 92.3 ml/min; Est GFR (Non-African American) 79.6 ml/min; Potassium 3.8 mmol/L (3.5-5.1)
[2021-08-08 10:59] LABS: Albumin Globulin Ratio 0.6 (0.9-2); Bilirubin,Total 0.5 mg/dl (0.2-1); C Reactive Protein 3.8 mg/dl (0-0.29); Globulin 4.5 gm/dl (2.5-4.0); Total Protein 7.1 gm/dl (6.4-8.2)
--- NOTE | 2021-08-08 11:30 | Hospitalist Progress Note ---
Date of Service August 08, 2021 Assessment & Plan (1) Pneumonia due to COVID-19 virus: Plan: Patient acute hypoxic respiratory failure secondary to Covid 19 infection with pneumonia First symptoms: ~07/30/2021 First tested: in our system 08/04/2021 Vaccinated: No Admission date: 08/05/2021 Admission O2 requirement: 2 L Admission CRP: 12 on 08/05/21 Dexamethasone course started: 08/05/2020 Remdesivir started: 08/05/2020 Tocilizumab given/baricitinib: current CRP 3.8 and oxygen requirement does not qualify Antibiotics: Azithromycin, was given cefepime in the ER did a pro-Adan of 1.16 on admission, procalcitonin now negative, will continue 5 day course azithromycin then stop Prone as able Increase Lasix to 40mg IV daily (2) Acute respiratory failure with hypoxia: Plan: Secondary to COVID Aim O2 sats > 90%. (3) Hypertension: Plan: Continue losartan will be on daily furosemide in addition (4) Hypothyroidism: Plan: Levothyroxine reportedly on hold per PCP therefore will discontinue this Plan: VTE Prophylaxis - Lovenox 40mg SQ daily Diet - regular Disposition - continue on COVID precautions med/surg Admission and Anticipated Discharge Date Admission Date: August 05, 2021 Subjective No significant change in shortness of breath. Significantly short of breath on minimal exertion. No chest pain. She reports longstanding urinary incontinence, ongoing issues with bladder prolapse. Also concerned about burning in her nose. Review of Systems Review of Systems: All systems reviewed & are unremarkable except as noted in HPI & below Physical Exam Constitutional: WD/WN, vitals as above Eyes: + anicteric sclerae; normal pupil size ENMT: external ear and nose normal, oropharynx normal Neck: trachea midline, no thyromegaly Respiratory: normal respiratory effort Auscultation: + crackles (bilaterally) Cardiovascular: RRR, no murmur, no edema Gastrointestinal (Abdomen): normal bowel sounds, soft, nontender, no hepatosplenomegaly Musculoskeletal: no cyanosis or clubbing, extremities motor strength 5/5 Skin: no rashes, warm and dry Neurologic: moves all extremities and awake; not confused Psychiatric: A+Ox3, euthymic affect Results & Data Results & Data ([facility]) Laboratory Results Abnormal lab results 08/08/21 08/08/21 Range/Units 09:27 09:27 RBC 4.06 L (4.2-5.4) M/uL RDW Std Deviation 48.8 H (36.4-46.3) fL Lymph # (Auto) 0.90 L (1.2-3.4) K/uL Chloride 108 H (98-107) mmol/L BUN 24 H (7-18) mg/dl BUN/Creatinine Ratio 32.3 H (10-20) Glucose 134 H (70-99) mg/dl AST 40 H (15-37) U/L Alkaline Phosphatase 177 H D (45-117) U/L C-Reactive Protein 3.80 H (0-0.29) mg/dl Albumin 2.6 L (3.4-5.0) gm/dl Globulin 4.5 H (2.5-4.0) gm/dl Albumin/Globulin Ratio 0.6 L (0.9-2) PG Care Time/CCT Total # of Minutes Spent Total Time Spent with Patient: Total time spent is greater than 50% in coordination of care (as documented) at patient's floor/unit and/or counseling patient: Coding Level of Care Code 36496 Subseq Hosp Care Lvl 2 Diagnoses Pneumonia due to COVID-19 virus U07.1; J12.82 Hypertension I10 Hypothyroidism E03.9 Acute respiratory failure with hypoxia J96.01
[2021-08-08] MEDS: dexAMETHasone 6 MG in SYRINGE 0 ML IV SCH (12:19)
[2021-08-08] MEDS: REMDESIVIR 100 MG in SODIUM CHLORIDE 0.9% 230 ML IV SCH (12:24)
[2021-08-08] MEDS: SODIUM CHLORIDE 0.9% 10ML FLUSH IV SCH (12:25)
[2021-08-08] MEDS: AZITHROMYCIN 250 MG TAB PO SCH (13:46)
[2021-08-08] MEDS: ENOXAPARIN INJ 40 MG/0.4 ML SYR SQ SCH (13:46)
[2021-08-08] MEDS: ADVANCED PROBIOTIC 1250 MG CAPSULE PO SCH (13:46)
[2021-08-08] MEDS: guaiFENesin/CODEINE 100MG/10MG 5ML UDC PO PRN (20:51)
[2021-08-08] MEDS: MELATONIN 3 MG TAB PO PRN (20:51)
[2021-08-08] MEDS: SODIUM CHLORIDE 0.65% NA SOLN 45 ML (OCEAN) SCH (20:52)
[2021-08-09] MEDS: LOSARTAN POTASSIUM 50 MG TAB PO SCH (08:57)
[2021-08-09] MEDS: ZINC SULFATE 220 MG CAPSULE PO SCH (08:58)
[2021-08-09] MEDS: ADVANCED PROBIOTIC 1250 MG CAPSULE PO SCH (08:58)
[2021-08-09] MEDS: LORATADINE 10 MG TAB PO SCH (08:59)
[2021-08-09] MEDS: ASCORBIC ACID 500 MG TAB PO SCH (08:59)
[2021-08-09] MEDS: CHOLECALCIFEROL 1,000 UNITS 25 MCG TAB PO SCH (09:00)
[2021-08-09] MEDS: FUROSEMIDE 40 MG/4 ML VIAL IV SCH (09:01)
[2021-08-09] MEDS: ENOXAPARIN INJ 40 MG/0.4 ML SYR SQ SCH (09:01)
[2021-08-09] MEDS: dexAMETHasone 6 MG in SYRINGE 0 ML IV SCH (09:02)
[2021-08-09] MEDS: FAMOTIDINE 20 MG TAB PO SCH ×2 (09:15→21:20)
[2021-08-09] MEDS: SODIUM CHLORIDE 0.65% NA SOLN 45 ML (OCEAN) SCH ×2 (09:28→21:20)
[2021-08-09] MEDS: guaiFENesin/CODEINE 100MG/10MG 5ML UDC PO PRN (09:34)
--- NOTE | 2021-08-09 10:55 | Hospitalist Progress Note ---
Date of Service August 09, 2021 Assessment & Plan (1) Pneumonia due to COVID-19 virus: Plan: Patient acute hypoxic respiratory failure secondary to Covid 19 infection with pneumonia First symptoms: ~07/30/2021 First tested: in our system 08/04/2021 Vaccinated: No Admission date: 08/05/2021 Admission O2 requirement: 2 L Admission CRP: 12 on 08/05/21 Dexamethasone course started: 08/05/2020 Remdesivir started: 08/05/2020 Tocilizumab given/baricitinib: current CRP 3.8 and oxygen requirement does not qualify Antibiotics: Azithromycin, was given cefepime in the ER did a pro-Adan of 1.16 on admission, procalcitonin now negative, will continue 5 day course azithromycin then stop Prone as able Good urine output with Lasix 20mg PO +20mg IV yesterday - increase daily dose to 40mg IV daily Start MiraLAX 17g BID (2) Acute respiratory failure with hypoxia: Plan: Secondary to COVID Aim O2 sats > 90%. (3) Hypertension: Plan: Continue losartan will be on daily furosemide in addition (4) Hypothyroidism: Plan: Levothyroxine reportedly on hold per PCP therefore will discontinue this Plan: VTE Prophylaxis - Lovenox 40mg SQ daily Diet - regular Disposition - continue on COVID precautions med/surg Admission and Anticipated Discharge Date Admission Date: August 05, 2021 Subjective No acute concerns or questions. Concerned she hasn't moved much in the last three days. No BM yet since admission. Nose burning improved with humidified oxygen. Review of Systems Review of Systems: All systems reviewed & are unremarkable except as noted in HPI & below Physical Exam Constitutional: WD/WN, vitals as above Eyes: + anicteric sclerae; normal pupil size ENMT: external ear and nose normal, oropharynx normal Neck: trachea midline, no thyromegaly Respiratory: normal respiratory effort Auscultation: + crackles (bilaterally) Cardiovascular: RRR, no murmur, no edema Gastrointestinal (Abdomen): normal bowel sounds, soft, nontender, no hepatosplenomegaly Musculoskeletal: no cyanosis or clubbing, extremities motor strength 5/5 Skin: no rashes, warm and dry Neurologic: moves all extremities and awake; not confused Psychiatric: A+Ox3, euthymic affect Results & Data Results & Data ([place]) Vital Signs (Past 12 Hours) Vital Signs Temp Pulse Resp BP Pulse Ox 08/09/21 08:35 36.6 C 84 18 172/80 H 90 08/08/21 23:32 36.8 C 74 20 151/75 H 90 PG Care Time/CCT Total # of Minutes Spent Total Time Spent with Patient: Total time spent is greater than 50% in coordination of care (as documented) at patient's floor/unit and/or counseling patient: Coding Level of Care Code 65001 Subseq Hosp Care Lvl 2 Diagnoses Pneumonia due to COVID-19 virus U07.1; J12.82 Acute respiratory failure with hypoxia J96.01 Hypertension I10 Hypothyroidism E03.9
[2021-08-09] MEDS: REMDESIVIR 100 MG in SODIUM CHLORIDE 0.9% 230 ML IV SCH (13:55)
[2021-08-09] MEDS: AZITHROMYCIN 250 MG TAB PO SCH (15:15)
[2021-08-09] MEDS: POLYETHYLENE (MIRALAX) 17 GM PACK PO SCH (15:15)
[2021-08-09] MEDS: SODIUM CHLORIDE 0.9% 10ML FLUSH IV SCH (15:17)
[2021-08-10] MEDS: MELATONIN 3 MG TAB PO PRN ×2 (00:29→20:04)
--- NOTE | 2021-08-10 07:53 | Hospitalist Progress Note ---
Date of Service August 10, 2021 Assessment & Plan (1) Pneumonia due to COVID-19 virus: Plan: Patient acute hypoxic respiratory failure secondary to Covid 19 infection with pneumonia First symptoms: ~07/30/2021 First tested: in our system 08/04/2021 Vaccinated: No Admission date: 08/05/2021 Admission O2 requirement: 2 L Admission CRP: 12 on 08/05/21 Dexamethasone course started: 08/05/2020 Remdesivir started: 08/05/2020 completed Tocilizumab given/baricitinib: current CRP 3.8 and oxygen requirement does not qualify Antibiotics: Azithromycin, was given cefepime in the ER did a pro-Adan of 1.16 on admission, procalcitonin now negative, will continue 5 day course azithromycin then stop Prone as able Good urine output with Lasix 20mg PO +20mg IV yesterday - increase daily dose to 40mg IV daily Start MiraLAX 17g BID (2) Acute respiratory failure with hypoxia: Plan: Secondary to COVID Aim O2 sats > 90%. (3) Hypertension: Plan: Continue losartan will be on daily furosemide in addition (4) Hypothyroidism: Plan: Levothyroxine reportedly on hold per PCP therefore will discontinue this Plan: VTE Prophylaxis - Lovenox 40mg SQ daily Diet - regular Disposition - continue on COVID precautions med/surg Admission and Anticipated Discharge Date Admission Date: August 05, 2021 Subjective Patient slowly improving still having problems with constipation had a large stool ball that was very tender Review of Systems Review of Systems: Moderate distress and fatigue no headache, no visual changes no speech or swallowing issues no chest pain, pressure or palpitations shortness of breath, nonproductive cough or wheezes chest is less no abdominal pain, nausea or vomiting, no diarrhea No dysuria but she does have incontinence no focal joint pain or swelling no back pain, CVA tenderness or radicular pain no bruising, bleeding or rashes no focal signs of weakness or numbness or altered sensation no complaints of anxiety or depression.. Physical Exam Physical Exam: The patient appeared mild to moderate respiratory distress Vital signs as documented. Head exam is normocephalic atraumatic Neck is without JVD, thyromegaly, or carotid bruits. Lungs are coarse bilaterally in all lung anthony tachypnea Cardiac exam, Rhythm is regular.. No murmurs, rubs or gallops. Abdominal exam reveals normal bowel sounds, soft non tender, no masses Extremities are nonedematous and both pedal pulses are present Neurologic exam is alert and oriented, no focal loss of strength or sensation Skin is without bruises or rashes Psychologically is without concerns for anxiety or depression.. Results & Data Results & Data ([facility]) Vital Signs (Past 12 Hours) Vital Signs Temp Pulse Resp BP Pulse Ox Pulse Ox 08/09/21 23:15 93 08/09/21 21:23 97.7 F 57 L 16 153/84 H 94 PG Care Time/CCT Total # of Minutes Spent Total Time Spent with Patient: Total time spent is greater than 50% in coordination of care (as documented) at patient's floor/unit and/or counseling patient: Coding Level of Care Code 58568 Subseq Hosp Care Lvl 2 Diagnoses Pneumonia due to COVID-19 virus U07.1; J12.82 Acute respiratory failure with hypoxia J96.01 Hypertension I10 Hypothyroidism E03.9
[2021-08-10] MEDS: POLYETHYLENE (MIRALAX) 17 GM PACK PO SCH (08:45)
[2021-08-10] MEDS: ASCORBIC ACID 500 MG TAB PO SCH (08:46)
[2021-08-10] MEDS: CHOLECALCIFEROL 1,000 UNITS 25 MCG TAB PO SCH (08:47)
[2021-08-10] MEDS: LORATADINE 10 MG TAB PO SCH (08:47)
[2021-08-10] MEDS: FAMOTIDINE 20 MG TAB PO SCH ×2 (08:48→20:04)
[2021-08-10] MEDS: ADVANCED PROBIOTIC 1250 MG CAPSULE PO SCH (08:48)
[2021-08-10] MEDS: ZINC SULFATE 220 MG CAPSULE PO SCH (08:48)
[2021-08-10] MEDS: guaiFENesin/CODEINE 100MG/10MG 5ML UDC PO PRN (08:49)
[2021-08-10] MEDS: LOSARTAN POTASSIUM 50 MG TAB PO SCH (08:49)
[2021-08-10] MEDS: ENOXAPARIN INJ 40 MG/0.4 ML SYR SQ SCH (08:54)
[2021-08-10] MEDS: dexAMETHasone 6 MG in SYRINGE 0 ML IV SCH (08:54)
[2021-08-10] MEDS: FUROSEMIDE 40 MG/4 ML VIAL IV SCH (08:54)
[2021-08-10] MEDS: SODIUM CHLORIDE 0.65% NA SOLN 45 ML (OCEAN) SCH ×2 (08:55→20:05)
[2021-08-10 09:11] LABS: Albumin Level 2.8 gm/dl (3.4-5.0); BUN Creatinine Ratio 42.7 (10-20); Calcium 8.8 mg/dl (8.5-10.1); Creatinine Clr Calc Pharmacy 77.1 ml/min; Est GFR (Non-African American) 83.7 ml/min; Potassium 3.7 mmol/L (3.5-5.1)
[2021-08-10 09:14] LABS: Albumin Globulin Ratio 0.7 (0.9-2); Globulin 4.2 gm/dl (2.5-4.0)
[2021-08-10 09:21] LABS: Bilirubin,Total 0.5 mg/dl (0.2-1)
[2021-08-10] MEDS: SUCRALFATE 1 GM TAB PO SCH ×3 (13:11→20:04)
[2021-08-10] MEDS ORDERED: bisacodyL 10 MG SUPP PR STA (18:19)
[2021-08-10] MEDS: ACETAMINOPHEN 325 MG TAB PO PRN (20:05)
--- NOTE | 2021-08-11 07:51 | Hospitalist Progress Note ---
Date of Service August 11, 2021 Assessment & Plan (1) Pneumonia due to COVID-19 virus: Plan: Patient acute hypoxic respiratory failure secondary to Covid 19 infection with pneumonia First symptoms: ~07/30/2021 First tested: in our system 08/04/2021 Vaccinated: No Admission date: 08/05/2021 Admission O2 requirement: 2 L Admission CRP: 12 on 08/05/21 Dexamethasone course started: 08/05/2020 Remdesivir started: 08/05/2020 completed Tocilizumab given/baricitinib: current CRP 3.8 and oxygen requirement does not qualify Antibiotics: Azithromycin, was given cefepime in the ER did a pro-Adan of 1.16 on admission, procalcitonin now negative, will continue 5 day course azithromycin then stop Prone as able Good urine output with Lasix - Start MiraLAX 17g BID (2) Acute respiratory failure with hypoxia: Plan: Secondary to COVID Aim O2 sats > 90%. (3) Hypertension: Plan: Continue losartan will be on daily furosemide in addition (4) Hypothyroidism: Plan: Levothyroxine reportedly on hold per PCP therefore will discontinue this Plan: VTE Prophylaxis - Lovenox 40mg SQ daily Diet - regular constipation resolved Disposition - continue on COVID precautions med/surg Admission and Anticipated Discharge Date Admission Date: August 05, 2021 Subjective Patient slowly improving, resolved constipation Review of Systems Review of Systems: Lessening distress and fatigue no headache, no visual changes no speech or swallowing issues no chest pain, pressure or palpitations shortness of breath, nonproductive cough or wheezes chest is less no abdominal pain, nausea or vomiting, no diarrhea No dysuria but she does have incontinence no focal joint pain or swelling no back pain, CVA tenderness or radicular pain no bruising, bleeding or rashes no focal signs of weakness or numbness or altered sensation no complaints of anxiety or depression.. Physical Exam Physical Exam: The patient appeared mild to moderate respiratory distress Vital signs as documented. Head exam is normocephalic atraumatic Neck is without JVD, thyromegaly, or carotid bruits. Lungs are coarse bilaterally in all lung anthony tachypnea Cardiac exam, Rhythm is regular.. No murmurs, rubs or gallops. Abdominal exam reveals normal bowel sounds, soft non tender, no masses Extremities are nonedematous and both pedal pulses are present Neurologic exam is alert and oriented, no focal loss of strength or sensation Skin is without bruises or rashes Psychologically is without concerns for anxiety or depression.. Results & Data Results & Data ([facility]) Vital Signs (Past 12 Hours) Vital Signs Temp Pulse Resp BP Pulse Ox Pulse Ox 08/10/21 23:00 92 08/10/21 22:19 98.4 F 63 18 156/78 H 92 PG Care Time/CCT Total # of Minutes Spent Total Time Spent with Patient: Total time spent is greater than 50% in coordination of care (as documented) at patient's floor/unit and/or counseling patient: Coding Level of Care Code 89666 Subseq Hosp Care Lvl 2 Diagnoses Pneumonia due to COVID-19 virus U07.1; J12.82 Acute respiratory failure with hypoxia J96.01 Hypertension I10 Hypothyroidism E03.9
[2021-08-11 07:53] LABS: Creatinine Clr Calc Pharmacy 79.5 ml/min; Est GFR (African American) 100.3 ml/min; Est GFR (Non-African American) 86.6 ml/min
[2021-08-11] MEDS: dexAMETHasone 6 MG in SYRINGE 0 ML IV SCH (09:15)
[2021-08-11] MEDS: SUCRALFATE 1 GM TAB PO SCH ×4 (09:16→20:55)
[2021-08-11] MEDS: ENOXAPARIN INJ 40 MG/0.4 ML SYR SQ SCH (09:16)
[2021-08-11] MEDS: LOSARTAN POTASSIUM 50 MG TAB PO SCH (09:17)
[2021-08-11] MEDS: ZINC SULFATE 220 MG CAPSULE PO SCH (09:17)
[2021-08-11] MEDS: ADVANCED PROBIOTIC 1250 MG CAPSULE PO SCH (09:18)
[2021-08-11] MEDS: LORATADINE 10 MG TAB PO SCH (09:19)
[2021-08-11] MEDS: CHOLECALCIFEROL 1,000 UNITS 25 MCG TAB PO SCH (09:19)
[2021-08-11] MEDS: FUROSEMIDE 40 MG/4 ML VIAL IV SCH (09:20)
[2021-08-11] MEDS: SODIUM CHLORIDE 0.65% NA SOLN 45 ML (OCEAN) SCH ×2 (09:21→20:55)
[2021-08-11] MEDS: POLYETHYLENE (MIRALAX) 17 GM PACK PO SCH (09:21)
[2021-08-11] MEDS: FAMOTIDINE 20 MG TAB PO SCH ×2 (09:56→20:54)
[2021-08-11] MEDS: MELATONIN 3 MG TAB PO PRN (20:54)
[2021-08-12] MEDS: SODIUM CHLORIDE 0.65% NA SOLN 45 ML (OCEAN) SCH (08:15)
[2021-08-12] MEDS: ENOXAPARIN INJ 40 MG/0.4 ML SYR SQ SCH (08:15)
[2021-08-12] MEDS: ADVANCED PROBIOTIC 1250 MG CAPSULE PO SCH (08:16)
[2021-08-12] MEDS: LOSARTAN POTASSIUM 50 MG TAB PO SCH (08:16)
[2021-08-12] MEDS: LORATADINE 10 MG TAB PO SCH (08:16)
[2021-08-12] MEDS: ZINC SULFATE 220 MG CAPSULE PO SCH (08:16)
[2021-08-12] MEDS: SUCRALFATE 1 GM TAB PO SCH ×2 (08:17→12:58)
[2021-08-12] MEDS: FUROSEMIDE 40 MG/4 ML VIAL IV SCH (08:17)
[2021-08-12] MEDS: CHOLECALCIFEROL 1,000 UNITS 25 MCG TAB PO SCH (08:17)
[2021-08-12] MEDS: dexAMETHasone 6 MG in SYRINGE 0 ML IV SCH (08:17)
[2021-08-12] MEDS: POLYETHYLENE (MIRALAX) 17 GM PACK PO SCH (08:18)
[2021-08-12] MEDS: FAMOTIDINE 20 MG TAB PO SCH (10:11)
--- NOTE | 2021-08-12 14:41 | Discharge Summary ---
Date of Service August 12, 2021 Admission HPI Per Admitting Provider 70-year-old female who received monoclonal antibodies on 08/04/2021. Patient presents after going home and coming back with hypoxemia. Patient has a 5-day prehospital history of fever congestion fatigue and diarrhea. Patient has Covid positive testing. Patient became profoundly hypoxic when ambulating in the ER. Patient is extremely hard of hearing but recommended for admission. She denies any other medical problems with exception of a prolapsed uterus and difficulty with urinary incontinence but no complaints of dysuria or cloudy urine. Patient remains intermittently febrile and hypoxemic patient is unvaccinated. Patient was taking ivermectin that she got off the Internet from [place] Principal Diagnosis Acute respiratory failure with hypoxia COVID-19 positive test (U07.1, COVID-19) with Acute Pneumonia (J12.89, Other viral pneumonia) (If respiratory failure or sepsis present, add as separate assessment) Discharge Exam The patient appeared well Vital signs as documented. Lungs still with scant rales at the bases otherwise good air movement no wheezes Cardiac exam, Rhythm is regular.. No murmurs, rubs or gallops. Abdominal exam reveals normal bowel sounds, soft non tender, no masses Extremities are nonedematous and both pedal pulses are normal. Neurologic exam is alert and oriented, no focal loss of strength or sensation Skin is without bruises or rashes Psychologically is with concerns for anxiety about going home and this disease in general Discharge Data Allergies Allergy/AdvReac Type Severity Reaction Status Date / Time No Known Drug Allergies Allergy Verified 08/05/21 09:32 Consultations 08/05/21 09:11 ED Decision to Admit Stat Hospital Course (1) Pneumonia due to COVID-19 virus: Patient acute hypoxic respiratory failure secondary to Covid 19 infection with pneumonia First symptoms: ~07/30/2021 First tested: in our system 08/04/2021 Vaccinated: No Admission date: 08/05/2021 Admission O2 requirement: 2 L at rest 4 with exertion Admission CRP: 12 on 08/05/21 Dexamethasone course started: 08/05/2020 will complete additional doses at home to approximately 10 days treatment Remdesivir started: 08/05/2020 completed Tocilizumab given/baricitinib: current CRP 3.8 and oxygen requirement did not qualify Antibiotics: Azithromycin, was given cefepime in the ER did a pro-Adan of 1.16 on admission, procalcitonin now negative, completed 5 day course azithromycin (2) Acute respiratory failure with hypoxia: Secondary to COVID Aim O2 sats > 90% patient required supplemental oxygen at time of discharge 2 L at rest 4 L with exertion. (3) Hypertension: Continue losartan (4) Hypothyroidism: Levothyroxine reportedly on hold per PCP therefore will discontinue this Diet - regular constipation resolved Disposition - continue on COVID precautions after discharge for isolation. Total Time Total Time Spent Total Time Spent (In Minutes): It required greater than 30 minutes to prepare this patient for discharge Discharge Plan Discharge Items Patient Disposition: Home - Self-Care Reason For Visit: ACUTE HYPOXIC RESP.FAILURE,COVID PNEUMONIA Discharge Diagnosis: acute respiratory failure with low oxygen level covid pneumonia Activity: Per Instructions section Non-emergency contact: Primary Care Provider Call non-emergency contact if: your symptoms worsen and you have a fever Follow-up/Referrals: Bell Rosales DO [Primary Care Provider] - 08/16/21 8:30 am (Telehealth Appointment---doctor's office will call you for the appointment ) Diet: Regular Addtl Attending Provider Instructions: You have been diagnosed with covid infection, it would be recommended that you quarantine yourself for 10 days from your first test or first symptoms, and if at the 10th day you have no symptoms the you can come off quarantine but use common sense precautions. Quarantine means attempting to stay away from people who have not had an active covid infection in the past, and if you have to be around others to wear a mask even if you are indoors, do not share a room to sleep in with others until you are out of quarantine. If you still have symptoms at the 10th day, continue to quarantine until you are symptom free for 48 hours please complete your steroid, Dexamethasone, for an additional 3 days at home to complete 10 day course please rest and recover for an additional one month, you will need increased rest and force youself to have good food and nutritions please see your family doctor in one week, even if by phone You told this your provider had stopped your thyroid medication therefore we discontinued at the time of discharge please contact your primary care provider regarding this medication Pending Studies at Discharge: No Stand-Alone Forms: My [employer], Smoking Cessation Medications and DC Order Prescriptions: New Saline Mist 0.65 % Aerosol,Friendly 2 spray NA BID Qty: 1 RF: 0 dexamethasone [Decadron] 6 mg tablet 6 mg PO DAILY Qty: 3 RF: 0 (DME) Oxygen Home Liters Per Minute See Rx Instructions .ROUTE Qty: 2 RF: 0 Continued loratadine [Claritin] 10 mg tablet 10 mg PO DAILY Qty: 90 RF: 1 losartan 50 mg tablet 75 mg PO DAILY Qty: 90 RF: 1 ascorbic acid (vitamin C) 1,000 mg tablet 1 g PO DAILY RF: 0 garlic [Garlique] PO DAILY RF: 0 zinc 50 mg tablet 50 mg PO DAILY RF: 0 furosemide [Lasix] 20 mg tablet 20 mg PO DAILY PRN (Reason: edema) Qty: 30 RF: 1 cholecalciferol (vitamin D3) [Vitamin D3] 50 mcg (2,000 unit) Capsule 50 mcg PO DAILY RF: 0 albuterol sulfate 90 mcg/actuation HFA aerosol inhaler 2 inh inhalation Q6H Qty: 18 RF: 2 benzonatate 100 mg capsule 100 mg PO BID RF: 0 Discontinued levothyroxine 25 mcg tablet 12.5 mcg PO DAILY Qty: 45 RF: 1 Hold Instructions: hair loss ivermectin 3 mg tablet 3 mg PO BID RF: 0 Discharge Orders: Discharge Order (Routine); Ordered 08/12/21 Ordered By: Chun Hester/Other Patient Handouts: Disinfecting Your Home of COVID-19, Understanding Oxygen Therapy, Using Oxygen Safely, Using an Oxygen Tank at Home Admission Data Admit Date/Time: 08/05/21 09:23 Attending Provider: Chun Fermin Admit Provider: Cuhn Fermin Primary Care Provider: Bell Rosales Other Providers: Chun Fermin Other Interventions: Discharge Summary Assessment (RN) Last Done: 08/12/21 15:28 Coding Level of Care Code D/C DAY MANAGEMENT >30 MINS Diagnoses Pneumonia due to COVID-19 virus U07.1; J12.82 Acute respiratory failure with hypoxia J96.01 Hypertension I10 Hypothyroidism E03.9
== END 2021-08-12 17:10 | disposition home or self-care (01) | DRG 177 ==
LOC: ED 08:35 → SUATTDRO 09:23 → EDINP 09:23 → 3W 11:23